=== PATIENT | male | born 1985 | race African-American/Black ===

== ENCOUNTER → 2020-09-03 14:56 | Outpatient (CLI) | payer BC, SELFPAY ==
[2020-09-03] MEDS: COVID-19 VACC #1, MRNA(MOD) 100 MCG/0.5 ML VIAL IM (15:05)
== END ==
PROVIDERS: PCP Family Medicine; Visit Provider Internal Medicine
DX: Z23 Encounter for immunization (principal)
CPT/HCPCS: 0011A; 91301

== ENCOUNTER → 2020-10-02 13:56 | Outpatient (CLI) | payer BC, SELFPAY ==
[2020-10-02] MEDS: COVID-19 VACC #2, MRNA(MOD) 100 MCG/0.5 ML VIAL IM (14:02)
== END ==
PROVIDERS: PCP Family Medicine; Visit Provider Internal Medicine
DX: Z23 Encounter for immunization (principal)
CPT/HCPCS: 0012A; 91301

== ENCOUNTER 2021-05-02 15:48 | Emergency (ER) | payer BC, SELFPAY ==
[2021-05-02 16:32] LABS: COVID19 -Nasal RAPID Negative (Negative)
[2021-05-02 16:36] VITALS: PULSE 85; RESP 16; TEMP 36.8; O2SAT 100
--- NOTE | 2021-05-02 17:43 | ED_ITS ---
HPI - Recheck/Abnormal Lab/Rx General Chief Complaint: Recheck/Abnormal Lab/Rx Stated Complaint: Covid exposed x72 hours ago Time Seen by Provider: 05/02/21 17:37 Source: patient Mode of arrival: Ambulatory History of Present Illness HPI narrative: Patient presents to the ED for COVID testing after being exposed to a possible COVID patient. He denies any current symptoms or complaint. Related Data Allergies Allergy/AdvReac Type Severity Reaction Status Date / Time No Known Drug Allergies Allergy Verified 01/31/20 15:47 Review of Systems Review of Systems ROS Unobtainable: All systems reviewed & are unremarkable except as noted in HPI and below Constitutional Constitutional: Denies chills, Denies fatigue, Denies fever(s), Denies frequent falls, Denies lethargy and Denies weakness Eyes Eyes: Denies change in vision, Denies eye discharge, Denies irritation and Denies loss of vision ENT Ears, Nose, Mouth, and Throat: Denies change in voice, Denies dizziness, Denies neck pain, Denies sore throat and Denies throat swelling Cardiovascular Cardiovascular: Denies chest pain, Denies irregular heart rhythm, Denies lightheadedness, Denies palpitations, Denies dyspnea, Denies dyspnea on exertion and Denies orthopnea Respiratory Respiratory: Denies cough, Denies dyspnea, Denies dyspnea on exertion and Denies wheezing Gastrointestinal Gastrointestinal: Denies abdominal pain, Denies change in bowel habits, Denies diarrhea, Denies nausea and Denies vomiting Genitourinary Genitourinary: Denies hematuria, Denies flank pain, Denies urinary incontinence and Denies urinary urgency Musculoskeletal Musculoskeletal: Denies back pain, Denies muscle weakness, Denies neck pain, Denies numbness and Denies tingling Integumentary/Breasts Skin/Breast: Denies pruritus, Denies erythema, Denies rash and Denies wounds Neurologic Neurologic: Denies behavioral changes, Denies confusion, Denies dizziness, Denies frequent falls, Denies loss of vision, Denies numbness, Denies tingling and Denies weakness Psychiatric Psychiatric: Denies anxiety, Denies behavioral changes, Denies confusion, Denies depression, Denies homicidal ideation and Denies suicidal ideation Endocrine Endocrine: Denies fatigue, Denies flushing and Denies palpitations Hematologic/Lymphatic Hematologic/Lymphatic: Denies easy bruising Allergic/Immunologic Allergic/Immunologic: Denies urticaria, Denies throat swelling and Denies wheezing Patient History Medical History Chronic pancreatitis History of alcoholism History of seizures Hypertension Social History marital status: unmarried,living together Smoking Status: Current some day smoker alcohol intake: former substance use type: does not use Smoking Status: Current some day smoker Exam Initial Vital Signs Initial Vital Signs: Vital Signs Temperature 98.2 F 05/02/21 16:36 Pulse Rate 85 05/02/21 16:36 Respiratory Rate 16 05/02/21 16:36 Pulse Oximetry 100 05/02/21 16:36 Const General: cooperative, healthy appearing and comfortable Nutritional Appearance: average body habitus and well nourished Orientation: Orientation [facility] Head: normal to inspection, normocephalic and atraumatic Ears: hearing grossly normal bilaterally and external ears normal Nose: external nose normal and nares normal Face and sinus: normal facial exam and sinuses nontender Mouth: oral mucosae normal, lip normal and tongue normal Teeth and gingiva: dentition normal and gingiva normal Throat: posterior oropharynx normal Eyes Pupils: PERRL Resp Effort & Inspection: normal respiratory effort and able to speak in complete sentences Course Course Course Narrative: Patient was tested for COVID-19 and the result was negative Orders Ordered: ED Orders 05/02/21 16:11 COVID19 -Nasal swab/Pre-Proc Stat Vital Signs Vital signs: Vital Signs - 8 hr 05/02/21 16:36 Temperature 98.2 F Pulse Rate 85 Respiratory Rate 16 Pulse Oximetry 100 MDM - Recheck/Abnormal Lab/Rx Differential Diagnosis Differential diagnosis: Likely other Lab Data Labs: Lab Results 05/02/21 Range/Units 16:11 SARS-CoV-2 (PCR) Negative (Negative) [facility] Narrative Medical decision making narrative: Patient was here for COVID-19 test after possibly being exposed to someone with COVID Discharge Plan Departure Patient Disposition: Home Clinical Impression: COVID-19 ruled out by laboratory testing Referrals: Libertad Gonsales MD [Primary Care Provider] -
--- NOTE | 2021-05-02 18:16 | PC.NURSE ---
no symptoms, but exposed to someone covid +.
== END 2021-05-02 18:15 | disposition home or self-care (01) ==
PROVIDERS: Emergency Medicine; Emergency Provider Physician Assistant; PCP Family Medicine
DX: Z20.822 Contact with and (suspected) exposure to COVID-19 (principal); F17.200 Nicotine dependence, unspecified, uncomplicated
CPT/HCPCS: 87635; 99281; C9803

== ENCOUNTER → 2021-08-12 14:56 | Outpatient (CLI) | payer BC, SELFPAY ==
[2021-08-12 16:38] LABS: Urine N gonorrhoeae NOT DETECTED
[2021-08-12 16:42] LABS: Urine Chlamydia NOT DETECTED
== END ==
PROVIDERS: PCP Family Medicine; Visit Provider Physician Assistant
DX: R30.0 Dysuria (principal)
CPT/HCPCS: 87086; 87491; 87591

== ENCOUNTER → 2022-01-07 13:39 | Outpatient (CLI) | payer BC, SELFPAY ==
[2022-01-07 16:52] LABS: Urine N gonorrhoeae NOT DETECTED
[2022-01-07 17:12] LABS: Urine Chlamydia NOT DETECTED
== END ==
PROVIDERS: PCP Family Medicine; Visit Provider Family Medicine
DX: Z11.3 Encounter for screening for infections with a predominantly sexual mode of transmission (principal); Z87.898 Personal history of other specified conditions
CPT/HCPCS: 87491; 87591

== ENCOUNTER → 2022-01-07 14:23 | Outpatient (CLI) | payer BC, SELFPAY ==
[2022-01-07 15:49] LABS: Hepatitis B Surface Antigen NEGATIVE s/c (NEGATIVE)
[2022-01-07 15:55] LABS: HIV 1 & 2 Ab/Ag 4th Gen Combo NEGATIVE (NEGATIVE)
[2022-01-08 08:16] LABS: RPR Screen Non Reactive (Non Reactive)
== END ==
PROVIDERS: PCP Family Medicine; Referring Provider Family Medicine; Visit Provider Family Medicine
DX: Z11.3 Encounter for screening for infections with a predominantly sexual mode of transmission (principal); Z87.898 Personal history of other specified conditions
CPT/HCPCS: 36415; 86592; 87340; 87389; 87491; 87591

== ENCOUNTER → 2022-08-08 12:28 | Outpatient (CLI) | payer BC, SELFPAY ==
[2022-08-08 12:59] LABS: Semen Sperm Prescence Post-Vas Absent (ABSENT)
== END ==
PROVIDERS: PCP Family Medicine; Referring Provider Family Medicine; Visit Provider Family Medicine
DX: Z98.52 Vasectomy status (principal); N46.01 Organic azoospermia
CPT/HCPCS: 89321

== ENCOUNTER → 2023-08-22 18:50 | Outpatient (CLI) | payer BC, SELFPAY ==
[2023-08-22 22:46] LABS: Urine N gonorrhoeae NOT DETECTED
[2023-08-22 23:06] LABS: Urine Chlamydia NOT DETECTED
== END ==
PROVIDERS: PCP Family Medicine; Visit Provider Physician Assistant Surgical
DX: Z20.2 Contact with and (suspected) exposure to infections with a predominantly sexual mode of transmission (principal)
CPT/HCPCS: 87086; 87210; 87491; 87591